=== PATIENT | female | born 1970 | race Caucasian/White ===

== ENCOUNTER 2024-07-22 07:11 | Outpatient (CLI) | payer OTHER, SELFPAY ==
[2024-07-22 07:49] LABS: Basophils Percent Auto 0.6 % (0.2-1.2); Eosinophils Absolute Auto 0.1 K/mm3 (0-0.3); Hematocrit 40.4 % (37.0-47.0); Hemoglobin 13.6 g/dL (12.0-15.0); Immature Granulocyte Absolute 0.01 K/mm3 (0.00-0.031); Immature Granulocyte Percent A 0.2 % (0-0.5); Lymphocytes Absolute Auto 1.85 K/mm3 (0.9-3.2); Mean Corpuscular HGB Conc 33.7 g/dl (32-36); Mean Corpuscular Hemoglobin 32.4 pg (26-34); Mean Corpuscular Volume 96.2 fl (80-100); Mean Platelet Volume 10.3 fl (7.4-10.4); Monocytes Absolute Auto 0.5 K/mm3 (0.1-0.6); Monocytes Percent Auto 10.8 % (2.6-8.5); Neutrophils Absolute Auto 2.1 K/mm3 (1.3-6.7); Neutrophils Percent Auto 45.4 % (45.5-73.1); Platelet Count Result 176 k/mm3 (150-375); Red Cell Distribution Width 12.1 % (11.5-14.5); White Blood Count 4.6 K/mm3 (4.5-10.0)
[2024-07-22 08:02] LABS: Alanine Aminotransferase 21 U/L (6-35); Alkaline Phosphatase 46 U/L (38-126); Anion Gap 10 mmol/L (4-12); Aspartate Amino Transferase 22 U/L (14-36); Bilirubin,Total 0.3 mg/dL (0.2-1.3); Blood Urea Nitrogen 13 mg/dL (7-17); Calcium 8.8 mg/dL (8.4-10.2); Carbon Dioxide 26 mmol/L (22-30); Chloride 102 mmol/L (98-107); Cholesterol 188 mg/dL (0-200); Estimated Glomerular Filt Rate > 60; Glucose 92 mg/dL (65-110); HDL Direct 54 mg/dL; Potassium 4.1 mmol/L (3.4-5.0); Sodium 138 mmol/L (137-145); Triglycerides 139 mg/dL (<150)
[2024-07-22 08:13] LABS: LDL Cholesterol Direct 103 mg/dL
[2024-07-22 08:33] LABS: Iron 90 ug/dL (37-170)
[2024-07-22 08:44] LABS: Percent Iron Saturation 32 % (20-50)
== END 2024-07-22 07:12 | disposition home or self-care (01) ==
DX: E66.9 Obesity, unspecified (principal); Z00.00 Encounter for general adult medical examination without abnormal findings; D50.9 Iron deficiency anemia, unspecified
CPT/HCPCS: 36415; 80053; 80061; 82607; 83540; 83550; 84443; 85025

== ENCOUNTER 2024-07-31 10:41 | Emergency (ER) | payer OTHER, SELFPAY ==
[2024-07-31 10:51] VITALS: BP 128/87; PULSE 80; RESP 16; TEMP 36.1; O2SAT 100
[2024-07-31 10:59] LABS: EDUAAPPEAR Clear; EDUABILI Negative (Negative); EDUABLOOD Trace (Negative); EDUACOLOR1 Orange; EDUAGLUCOSE Negative (Negative); EDUAKETONE Negative (Negative); EDUALEUKO Trace (Negative); EDUANITRATE Positive (Negative); EDUAPH 7.5; EDUAPROTEIN Negative (Negative); EDUASPGRAVITY 1.015; EDUAUROBILI 0.2
--- NOTE | 2024-07-31 11:08 | ED.FEMALEGU ---
HPI - Female Genitourinary General Chief complaint: Urogenital-Female Stated complaint: uti symptoms Time Seen by Provider: 07/31/24 11:00 Source: patient and RN notes reviewed Mode of arrival: ambulatory Limitations: no limitations History of Present Illness HPI Narrative: Patient presents today complaining of frequency, dysuria, urgency since yesterday. Denies fever, abdominal pain, back pain. She has taken Aleve and azo with some relief. No recent antibiotic use. Related Data Home Medications Medication Instructions Recorded Confirmed bupropion HCl 100 mg tablet,12 hr mg PO 07/31/24 sustained-release dicyclomine 10 mg capsule mg 07/31/24 phentermine 37.5 mg tablet mg 07/31/24 trazodone 100 mg tablet mg 07/31/24 Allergies Allergy/AdvReac Type Severity Reaction Status Date / Time sulfamethoxazole Allergy Swelling Verified 07/31/24 10:53 [From Bactrim] trimethoprim [From Bactrim] Allergy Swelling Verified 07/31/24 10:53 Review of Systems Review of Systems: CONSTITUTIONAL: Denies body aches, fever, chills, or sweats. EYES: Denies visual changes, redness, or discharge. ENT: Denies rhinorrhea, congestion, sore throat, or otalgia. CARDIOVASCULAR: Denies chest pain, palpitations, or edema. RESPIRATORY: Denies cough or dyspnea. GASTROINTESTINAL: Denies abdominal pain, nausea, vomiting, or diarrhea. GENITOURINARY: + dysuria, frequency, urgency SKIN: Denies rash, itching, or wounds. MUSCULOSKELETAL: Denies back pain, joint pain, or myalgia. NEUROLOGIC: Denies headache, numbness, tingling, or weakness. PSYCH: Denies depression or anxiety. [facility] Past Medical History Medical History (Updated 07/31/24 @ 11:09 by Kymberly Montejo, [facility], ) Chronic back pain Comments At time of signature, I have reviewed and agree with nursing past medical, surgical, social and family history unless otherwise noted. Please see nursing chart for further information. There is no relevant family history pertinent to the presenting complaint Exam Narrative: GENERAL: Well-appearing, well-nourished, and in no acute distress. HEAD: Normocephalic, atraumatic. EYES: EOMI. No redness or drainage. Conjunctivae normal. ENT: Mucous membranes pink and moist. NECK: Normal AROM. CHEST: No respiratory distress. Clear to auscultation. HEART: Regular rate and rhythm. No murmur appreciated. ABDOMEN: Soft, nontender, nondistended, normal active bowel sounds. -CVAT EXTREMITIES: Normal range of motion. No edema. SKIN: Warm, dry, no rash. Capillary refill normal. Normal skin turgor. NEURO: No focal deficits. Alert and oriented x3. Gait steady. PSYCH: Normal affect. No signs of depression or anxiety. Course Course Level of Care: Express Care Visit Vital Signs Vital signs: Vital Signs Temperature 96.9 F L 07/31/24 10:51 Pulse Rate 80 07/31/24 10:51 Respiratory Rate 16 07/31/24 10:51 Blood Pressure 128/87 07/31/24 10:51 Pulse Oximetry 100 07/31/24 10:51 Oxygen Delivery Room Air 07/31/24 10:51 Temperature 96.9 F L 07/31/24 10:51 Pulse Rate 80 07/31/24 10:51 Respiratory Rate 16 07/31/24 10:51 Blood Pressure 128/87 07/31/24 10:51 Pulse Oximetry 100 07/31/24 10:51 Oxygen Delivery Room Air 07/31/24 10:51 Reviewed MDM - Female Genitourinary MDM Narrative Medical decision making narrative: Patient's symptoms and urinalysis are consistent with UTI. Prescription for Keflex sent to pharmacy. Anticipatory guidance given. Culture pending. Differential Diagnosis Differential diagnosis: Likely urinary tract infection and cystitis Lab Data Attestation: I reviewed the patient's lab results. Labs: Lab Results 07/31/24 Range/Units 10:56 POC Urine Color [place] POC Urine Clarity Clear POC Urine pH 7.5 POC Ur Specif [place] 1.015 POC Urine Protein Negative (Negative) POC Ur Glucose (UA) Negative (Negative) POC Urine Ketones Negative (Negative)
== END 2024-07-31 11:11 | disposition home or self-care (01) ==
PROVIDERS: Emergency Provider Nurse Practitioner
DX: N39.0 Urinary tract infection, site not specified (principal)
CPT/HCPCS: 81003; 87086; 99213; G0463

== ENCOUNTER 2024-08-07 15:03 | Emergency (ER) | payer OTHER, SELFPAY ==
[2024-08-07 15:13] VITALS: BP 147/91; PULSE 78; RESP 18; TEMP 36.3; O2SAT 100
--- NOTE | 2024-08-07 15:13 | ED.FEMALEGU ---
HPI - Female Genitourinary General Chief complaint: Urogenital-Female Stated complaint: uti symptoms Time Seen by Provider: 08/07/24 15:13 Source: patient Mode of arrival: ambulatory Limitations: no limitations History of Present Illness HPI Narrative: 53-year-old female presents with complaint of urinary frequency, urgency, dysuria, bladder pressure for 10 days. States feels like something is sitting on my abdomen . Was seen at [facility] 1 week ago and took 1 week of cephalexin. Reports no change in symptoms. Reports pressure worse with sitting and standing. When laying flat does have relief of abdominal pressure. History of chronic back pain. Scheduled for back surgery September 18. Reports history of cyst to lumbar spine. patient also reports tingling and burning sensation to rectum for the past 2-3 days. No loss of bowel or bladder. Ambulatory with steady gait. All systems reviewed and negative except as noted above. Related Data Home Medications Medication Instructions Recorded Confirmed bupropion HCl 100 mg tablet,12 hr 100 mg PO BID 07/31/24 08/07/24 sustained-release dicyclomine 10 mg capsule 10 mg PO DAILY 07/31/24 08/07/24 phentermine 37.5 mg tablet 37.5 mg PO DAILY 07/31/24 08/07/24 trazodone 100 mg tablet 100 mg PO PRN PRN Insomnia 07/31/24 08/07/24 estradiol 0.05 mg/24 hr semiweekly See Rx Instructions .Route .COMPLEX 08/07/24 08/07/24 transdermal patch (Madhavi) Allergies Allergy/AdvReac Type Severity Reaction Status Date / Time sulfamethoxazole AdvReac Intermediate Swelling Verified 08/07/24 15:09 [From Bactrim] trimethoprim [From Bactrim] AdvReac Intermediate Swelling Verified 08/07/24 15:09 Review of Systems Review of Systems: CONSTITUTIONAL: Denies fever or sweats. reports chills. EYES: Denies visual changes, redness, or discharge. ENT: Denies rhinorrhea, congestion, sore throat, or otalgia. CARDIOVASCULAR: Denies chest pain, palpitations, or edema. RESPIRATORY: Denies cough or dyspnea. GASTROINTESTINAL: Reports lower abdominal pain. Denies nausea, vomiting, or diarrhea. GENITOURINARY: Reports dysuria, frequency, urgency, bladder pressure. SKIN: Denies rash or itching. MUSCULOSKELETAL: Reports low back pain. Denies joint pain, or myalgia. NEUROLOGIC: Denies headache, numbness, or weakness. reports rectal tingling and warmth. PSYCHIATRIC: Denies anxiety or depression. All other systems reviewed are negative, except as documented in HPI. [facility] Past Medical History Medical History (Updated 08/07/24 @ 15:41 by Ban Rawls NP) Chronic back pain Comments At time of signature, agree with nursing past medical, surgical, social and family history. There is no relevant family history pertinent to the presenting complaint. Exam Narrative: GENERAL: This is a well-nourished, well-developed patient, in no apparent distress. HEAD: normocephalic, atraumatic. EYES: PERRL. Sclera clear/white. Vision is grossly intact. EARS: External ears normal NOSE: External nose normal NECK: Neck supple, non-tender without lymphadenopathy, masses or thyromegaly. CARDIOVASCULAR: Regular rate and rhythm without murmurs, gallops, or rubs. RESPIRATORY: Clear to auscultation. Breath sounds equal bilaterally. No wheezes, rales, or rhonchi. GASTROINTESTINAL: Abdomen soft, Suprapubic tenderness, nondistended. Bowel sounds are active. No hepato-splenomegaly, or palpable masses. No guarding. SKIN: warm, Dry, intact with no suspicious lesions or rash, good texture and turgor. NEURO: awake, alert, and oriented to person, place and time. There were no obvious focal neurologic abnormalities. EXTREMITIES: No joint tenderness, effusion, or edema noted. Course Course Level of Care: Express Care Visit Vital Signs Vital signs: Vital Signs Temperature 36.3 C L 08/07/24 15:13 Pulse Rate 78 08/07/24 15:13 Respiratory Rate 18 08/07/24 15:13 Blood Pressure 147/91 H 08/07/24
[2024-08-07 15:29] LABS: EDUAAPPEAR Clear; EDUABILI Negative (Negative); EDUABLOOD Negative (Negative); EDUACOLOR1 Yellow; EDUAGLUCOSE Negative (Negative); EDUAKETONE Negative (Negative); EDUALEUKO Negative (Negative); EDUANITRATE Negative (Negative); EDUAPH 7.5; EDUAPROTEIN Negative (Negative); EDUAUROBILI 0.2
== END 2024-08-07 15:42 | disposition short-term general hospital (02) ==
PROVIDERS: Emergency Provider Nurse Practitioner Family
DX: R10.30 Lower abdominal pain, unspecified (principal); R39.15 Urgency of urination
CPT/HCPCS: 81003; 99212; G0463

== ENCOUNTER 2024-08-07 16:00 | Emergency (ER) | payer OTHER, SELFPAY ==
--- NOTE | ~2024-08-07 | CT_ITS ---
EXAMINATION: CT abdomen pelvis wo con DATE: 08/07/2024 17:21 INDICATION: r/o ureteral stone, suprapubic pain TECHNIQUE: Computed tomography (CT) of the abdomen and pelvis was performed without intravenous contr ast. Automated exposure control and iterative reconstruction technique were employed. The dose-length product was 1029.08 mGy-cm. COMPARISON: None. FINDINGS: Lower thorax: Large hiatal hernia containing approximately one half of the stomach. Liver: Normal. Biliary/Gallbladder: Gallbladder is absent. No bile duct dilation. Pancreas: No mass or duct dilation. Spleen: Normal. Adrenals:No mass. Kidneys: No suspicious mass, obstructing stone, or hydronephrosis. GI tract: No small or large bowel dilation. Normal appendix. Mesentery/Peritoneum: No ascites, mass, or free air. Retroperitoneum: No mass. Pelvis: Normal urinary bladder. Absent uterus. Normal bilateral ovaries. 1.4 cm simple appearing left ovarian cyst which requires no additional evaluation at this time. Soft Tissues: Small fat-containing umbilical hernia with mild inflammatory change. Bones: No acute osseous finding. IMPRESSION: No acute abdominopelvic process detected. Reviewed, dictated and finalized at location K.
[2024-08-07 16:22] VITALS: BP 141/94; PULSE 85; RESP 16; TEMP 36.6; O2SAT 100
[2024-08-07 17:09] LABS: Add Urine Microscopic? NO; Appearance Urine Clear (Clear); Bilirubin Urine Negative (Negative); Blood Urine Negative (Negative); Color Urine Yellow (Yellow); Glucose Urine UA Negative (Negative); Ketones Urine Negative (Negative); Leukocyte Esterase Ur Negative LEU/UL (Negative); Nitrate Urine Negative (Negative); Protein Urine Negative (Negative); Specific Grav Ur 1.013 (1.001-1.035); Urobilinogen Urine 0.2 mg/dL (<2.0)
--- NOTE | 2024-08-07 17:09 | ED.FEMALEGU ---
HPI - Female Genitourinary General Chief complaint: Urogenital-Female Stated complaint: urinary symptoms Time Seen by Provider: 08/07/24 16:28 History of Present Illness HPI Narrative: 53-year-old female presents to the ED from urgent care for UTI symptoms. Patient was seen in urgent care about a week ago for urinary frequency, urgency and dysuria. She was prescribed Keflex which he took as directed but her symptoms did not improve. She presented to urgent care today for persistent symptoms was sent to the ED for imaging due to concerns for kidney stone. The patient is reporting persistent dysuria, urinary frequency and urgency. She is also reporting suprapubic abdominal pain and intermittent right flank pain. She denies hematuria, vaginal discharge, vaginal pruritus. She states it does not feel like a yeast infection. She denies dyspareunia, fever, vomiting. States she has had some intermittent nausea. She is also reporting a warm sensation in her perineum which has never happened before. Denies diarrhea, rectal bleeding, rectal pain with movement. Patient states she had a partial hysterectomy years ago. She is uncertain if she is going through menopause but has had some hot flashes. Related Data Home Medications Medication Instructions Recorded Confirmed bupropion HCl 100 mg tablet,12 hr 100 mg PO BID 07/31/24 08/07/24 sustained-release dicyclomine 10 mg capsule 10 mg PO DAILY 07/31/24 08/07/24 phentermine 37.5 mg tablet 37.5 mg PO DAILY 07/31/24 08/07/24 trazodone 100 mg tablet 100 mg PO PRN PRN Insomnia 07/31/24 08/07/24 estradiol 0.05 mg/24 hr semiweekly See Rx Instructions .Route .COMPLEX 08/07/24 08/07/24 transdermal patch (Madhavi) Allergies Allergy/AdvReac Type Severity Reaction Status Date / Time sulfamethoxazole AdvReac Intermediate Swelling Verified 08/07/24 15:09 [From Bactrim] trimethoprim [From Bactrim] AdvReac Intermediate Swelling Verified 08/07/24 15:09 Review of Systems Review of Systems: All systems reviewed & are unremarkable except as noted in HPI and below PMFSH Past Medical History Medical History Chronic back pain Exam Narrative: GENERAL: Well-appearing, well-nourished, and in no acute distress. HEAD: Normocephalic, atraumatic. ENT: Nares clear, no rhinorrhea or epistaxis. Mucous membranes moist. NECK: Supple. CHEST: Clear to auscultation. No respiratory distress. HEART: Regular rate and rhythm. No murmur heard. Normal peripheral pulses. ABDOMEN: Normoactive bowel sounds. Abdomen soft with tenderness in the suprapubic region, no rebound, guarding or rigidity. No CVA tenderness. : Chaperoned by [place]: Labia with erythema, no rash or lesions, no abnormal discharge. Speculum not use EXTREMITIES: Normal range of motion. No edema. SKIN: Warm, dry, no rash. NEURO: No focal deficits. Alert and oriented x3 Course Vital Signs Vital signs: Vital Signs Temperature 98 F 08/07/24 16:22 Pulse Rate 85 08/07/24 16:22 Respiratory Rate 16 08/07/24 16:22 Blood Pressure 141/94 H 08/07/24 16:22 Pulse Oximetry 100 08/07/24 16:22 Oxygen Delivery Room Air 08/07/24 16:22 Temperature 98 F 08/07/24 16:22 Pulse Rate 85 08/07/24 16:22 Respiratory Rate 16 08/07/24 16:22 Blood Pressure 141/94 H 08/07/24 16:22 Pulse Oximetry 100 08/07/24 16:22 Oxygen Delivery Room Air 08/07/24 16:22 MDM - Female Genitourinary MDM Narrative Medical decision making narrative: 53-year-old female presents to the emergency department for UTI symptoms, suprapubic abdominal pain and right flank pain for approximately 1 week. Not improved with Keflex. Vitals are stable. She is afebrile nontoxic appearing. Exam is significant for the above. Notably there is evidence of vaginal mucosal atrophy on exam. CBC without leukocytosis or anemia. Chemistries are unremarkable. UA is normal, no UTI.
[2024-08-07 17:40] LABS: Basophils Percent Auto 0.6 % (0.2-1.2); Eosinophils Absolute Auto 0.1 K/mm3 (0-0.3); Eosinophils Percent Auto 1.2 % (0-4.4); Hematocrit 41.1 % (37.0-47.0); Hemoglobin 14.6 g/dL (12.0-15.0); Immature Granulocyte Absolute 0.01 K/mm3 (0.00-0.031); Immature Granulocyte Percent A 0.2 % (0-0.5); Lymphocytes Absolute Auto 1.47 K/mm3 (0.9-3.2); Lymphocytes Percent Auto 30.6 % (18.3-44.2); Mean Corpuscular HGB Conc 35.5 g/dl (32-36); Mean Corpuscular Volume 92.8 fl (80-100); Mean Platelet Volume 9.5 fl (7.4-10.4); Monocytes Absolute Auto 0.5 K/mm3 (0.1-0.6); Monocytes Percent Auto 9.6 % (2.6-8.5); Neutrophils Absolute Auto 2.8 K/mm3 (1.3-6.7); Neutrophils Percent Auto 57.8 % (45.5-73.1); Platelet Count Result 176 k/mm3 (150-375); Red Blood Count 4.43 M/mm3 (4.2-5.4); Red Cell Distribution Width 11.9 % (11.5-14.5); White Blood Count 4.8 K/mm3 (4.5-10.0)
[2024-08-07 17:50] LABS: Alanine Aminotransferase 26 U/L (6-35); Albumin Level 4.5 g/dL (3.5-5.1); Alkaline Phosphatase 43 U/L (38-126); Anion Gap 7 mmol/L (4-12); Aspartate Amino Transferase 26 U/L (14-36); Bilirubin,Total 0.6 mg/dL (0.2-1.3); Blood Urea Nitrogen 11 mg/dL (7-17); Calcium 9.2 mg/dL (8.4-10.2); Carbon Dioxide 30 mmol/L (22-30); Chloride 96 mmol/L (98-107); Estimated CRCL calculation 88 ml/min; Estimated Glomerular Filt Rate > 60; Glucose 88 mg/dL (65-110); Lipase 91 U/L (23-300); Potassium 3.9 mmol/L (3.4-5.0); Sodium 133 mmol/L (137-145)
== END 2024-08-07 18:16 | disposition home or self-care (01) ==
PROVIDERS: Emergency Provider Physician Assistant
DX: N95.2 Postmenopausal atrophic vaginitis (principal); R10.30 Lower abdominal pain, unspecified; Z79.899 Other long term (current) drug therapy
CPT/HCPCS: 36415; 74176; 80053; 81003; 83690; 85025; 99284